=== PATIENT | female | born 1995 | race Caucasian/White ===

== ENCOUNTER → 2020-02-22 09:32 | Outpatient (BNVA) | payer MEDICAID, SELFPAY | PROVIDERS: Referring Provider Obstetrics & Gynecology; Visit Provider Obstetrics & Gynecology | DX: N91.2 Amenorrhea, unspecified (principal) | CPT/HCPCS: 81025 ==

== ENCOUNTER → 2020-03-23 13:46 | Outpatient (BNVA) | payer MEDICAID, SELFPAY | PROVIDERS: Visit Provider Obstetrics & Gynecology | DX: O09.899 Supervision of other high risk pregnancies, unspecified trimester (principal); Z87.42 Personal history of other diseases of the female genital tract | CPT/HCPCS: 80053; 80307; 82950; 84315; 84443; 85027; 86592; 86762; 86803; 86850; 86900; 87340; 87806 ==

== ENCOUNTER → 2020-04-04 09:59 | Outpatient (BNVA) | payer MEDICAID, SELFPAY | PROVIDERS: Visit Provider Obstetrics & Gynecology | DX: O99.280 Endocrine, nutritional and metabolic diseases complicating pregnancy, unspecified trimester (principal); E28.2 Polycystic ovarian syndrome; O99.331 Smoking (tobacco) complicating pregnancy, first trimester; O34.219 Maternal care for unspecified type scar from previous cesarean delivery; Z12.4 Encounter for screening for malignant neoplasm of cervix | CPT/HCPCS: 84315; 87491; 87591; 88175 ==

== ENCOUNTER 2020-05-18 13:47 | Emergency (ER) | payer MEDICAID, SELFPAY ==
[2020-05-18 13:49] VITALS: BP 136/78; PULSE 85; RESP 18; TEMP 36.3; O2SAT 94; BMI 38.0
--- NOTE | 2020-05-18 14:01 | ED_ITS ---
HPI - General: Chief complaint: OB/Uterine Contractions Stated complaint: abd pain/ 19 weeks preg Time Seen by Provider: 05/18/20 13:50 Source: patient Mode of arrival: ambulatory Limitations: no limitations History of Present Illness: HPI Narrative: 25-year-old female who is currently 19 weeks . She states she has had lower abdominal cramping states she has not felt any movement over the last few days. She did multiple miscarries in the past. She denies any fever or vomiting. Denies any bleeding or discharge. States pain is cramping in nature and rates it a 2 out of 10. Complaint: abdominal pain Associated symptoms: Reports abdominal pain; Deny dysuria or headache(s) Review of Systems Const: Denies: fever(s), chills, body aches or change in appetite Eyes: Denies: blurry vision or eye discomfort ENMT: Denies: throat pain or dental pain Card: Denies: chest pain Resp: Denies: dyspnea GI: Reports: abdominal pain : Denies: dysuria Musc: Denies: neck pain or back pain Skin/Breast: Denies: rash Neuro: Denies: headache(s) Psych: Denies: depression Dm/Lymph: Denies: easy bruising All/Imm: Denies: urticaria PFSH ED PFSH: Medical History No pertinent past medical history Denies diabetes, asthma, hypertension, seizures, DVT/PE. PMD: None PCOS (polycystic ovarian syndrome) Diagnosed in 2013. Has never been on any medication. Has 1 cycle every 3 to 4 months usually. Surgical History H/O section 06/02/2017--primary low transverse delivery for arrest of dilation at 4 cm. No extensions, single-layer closure. Surgery performed at 38 weeks.(Operative report scanned into expanse History of placement of ear tubes At the age of 6 or 7 at the time of tonsillectomy. History of tonsillectomy and adenoidectomy At the age of 6 8-uncomplicated Family History Mother Hyperlipidemia Hypertension Colon cancer Dx'd at age 55 Family/Other Thyroid condition maternal aunt, maternal cousins Denies family history of Ovarian cancer Diabetes Heart disease Breast cancer Uterine cancer Social History Additional social history: - Tobacco use: Started smoking at the age of 15 and smoked half a pack of cigarettes a day until 02/29/2020 when she quit smoking cigarettes when she found out she was . Alcohol use: Denies Drug use: Reports occasional marijuana use a couple of times a year. Denies any since 15. 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 Physical Exam Const: COMMON NORMALS: no acute distress, patient oriented x3 and healthy appearing HENMT: COMMON NORMALS: normocephalic and atraumatic HEAD & SCALP: normocephalic and atraumatic Eye: COMMON NORMALS: Equal, round and reactive pupils present and EOMs intact bilaterally PUPIL: Yes Equal, round and reactive pupils present Neck/C-Spine: COMMON NORMALS: full ROM and supple Chest: COMMONS NORMALS: normal inspection of the chest and normal palpation of entire chest wall Resp: COMMON NORMALS: normal respiratory effort, No retractions, No use of accessory muscles and clear to auscultation bilaterally AUSCULTATION: clear to auscultation bilaterally Cardio: COMMON NORMALS: regular rate, regular rhythm and No murmurs present (Cardio) RATE: regular rate RHYTHM: regular rhythm GI: COMMON NORMALS: Normal to inspection, nondistended, normoactive bowel sounds present, Soft to palpation, non-tender and no masses PALPATION: Yes Soft to palpation OTHER: gravid uterus Extremity: COMMON NORMALS: normal to inspection and full ROM Neuro: COMMON NORMALS: patient oriented x3, moves all extremities and no focal motor deficits Psych: COMMON NORMALS: mental status grossly normal, Normal thought process present and cooperative THOUGHT PROCESS: Normal thought process present Skin: COMMON NORMALS: no rashes or lesions noted and no wounds GENERAL SKIN EXAM: no rashes or lesions noted Course Vital Signs: Vital signs: Vital Signs Temperature 97.3 F L 05/18/20 13:49 Pulse Rate 85 05/18/20 13:49 Respiratory Rate 18 05/18/20 13:49 Blood Pressure 136/78 05/18/20 13:49 Pulse Oximetry 94 05/18/20 13:49 MDM - OB/Uterine Contractions MDM Narrative: Medical decision making narrative: Patient presents with abdominal pain and . Likely round ligament pain. Bedside ultrasound showed an IUP consistent with dates with movement and heart rate of 154. Will prescribe her Reglan and she is stable for discharge. She is to follow-up with her OB in 2 to 4 days return if worsening. Lab Data: Labs: Lab Results 05/18/20 Range/Units 14:10 Urine Color Yellow (Yellow) Urine Appearance Clear (CLEAR) Urine pH 6.5 (5-7) Ur Specific Gravit y 1.020 (1.005-1.030) Urine Protein Neg (Negative) Urine Glucose (UA) Norm (Normal) Urine Ketones Negative (Negative) Urine Blood Neg (Negative) Urine Nitrate Negative (Negative) Urine Bilirubin Neg (Negative) Urine Urobilinogen 1 H (Negative) mg/dL Ur Leukocyte Karuna ase Negative (Negative) Discharge Plan Discharge Patient Disposition: Home Clinical Impression: Abdominal pain in Qualifiers: Trimester: unspecified trimester Qualified Code(s): O26.899 - Other specified related conditions, unspecified trimester Condition: Stable Prescriptions: New Reglan 10 mg tablet 10 mg PO Q6H PRN (Reason: nausea and vomiting) Qty: 20 RF: 0 No Action [id number] 29 mg iron- 1 mg-150 mg capsule 1 cap PO DAILY RF: 0 Vitamin C 1,000 mg Tablet 1,000 mg PO DAILY RF: 0 Discharge Orders: Discharge Order (Routine); Ordered 05/18/20 Ordered By: April Fernandes Referrals: Amy Dean MD [Primary Care Provider] - 1-3 days Discharge Diet: Advance as tolerated Discharge Activity: Resume usual activity Patient Instructions: Abdominal Pain (ED) Coding Level of Care Code ED Typewriter Mechanic for Chg Fwd Exam Comprehensive
[2020-05-18] MEDS: diphenhydrAMINE 50 mg/mL SDV 1mL IVP (14:44)
[2020-05-18] MEDS: metoclopramide 5 mg/mL SDV 2 mL 10 MG IVP (14:44)
[2020-05-18 14:45] LABS: Add Urine Microscopic? NO
[2020-05-18] MEDS: sodium chloride 0.9% 1,000 ML 30 ML IV (14:45)
[2020-05-18 14:47] LABS: Bilirubin Urine Neg (Negative); Blood Urine Neg (Negative); Glucose Urine UA Norm (Normal); Ketones Urine Negative (Negative); Leukocyte Esterase Urine Negative (Negative); Nitrate Urine Negative (Negative); Protein Urine Neg (Negative); Urine Appearance Clear (CLEAR); Urine Color Yellow (Yellow); Urobilinogen Urine 1 mg/dL (Negative); pH Urine 6.5 (5-7)
[2020-05-18 15:13] VITALS: BP 122/70; PULSE 76; RESP 18; O2SAT 99
== END 2020-05-18 15:15 | disposition home or self-care (01) ==
PROVIDERS: Emergency Provider Emergency Medicine; PCP Obstetrics & Gynecology
DX: O26.892 Other specified pregnancy related conditions, second trimester (principal); R10.9 Unspecified abdominal pain; Z3A.19 19 weeks gestation of pregnancy; Z87.891 Personal history of nicotine dependence
CPT/HCPCS: 12345; 81003; 96361; 96374; 96375; 99283; J1200; J2765; J7030

== ENCOUNTER → 2020-07-27 10:35 | Outpatient (BNVA) | payer MEDICAID, SELFPAY | PROVIDERS: PCP Obstetrics & Gynecology; Visit Provider Obstetrics & Gynecology | DX: O09.899 Supervision of other high risk pregnancies, unspecified trimester (principal) | CPT/HCPCS: 82950; 84315; 85025 ==

== ENCOUNTER → 2020-09-13 10:44 | Outpatient (BNVA) | payer MEDICAID, SELFPAY | PROVIDERS: PCP Obstetrics & Gynecology; Visit Provider Obstetrics & Gynecology | DX: O40.9XX0 Polyhydramnios, unspecified trimester, not applicable or unspecified (principal); Z3A.00 Weeks of gestation of pregnancy not specified | CPT/HCPCS: 84315; 87081 ==

== ENCOUNTER → 2020-10-01 09:21 | Outpatient (BNVA) | payer MEDICAID, SELFPAY | PROVIDERS: PCP Obstetrics & Gynecology; Visit Provider Obstetrics & Gynecology | DX: Z20.822 Contact with and (suspected) exposure to COVID-19 (principal); Z01.812 Encounter for preprocedural laboratory examination | CPT/HCPCS: 87635 ==

== ENCOUNTER 2020-10-06 05:01 | Inpatient (IN) | payer MEDICAID, SELFPAY ==
[2020-10-06] VITALS (30 sets, daily range): BP systolic 105–136; BP diastolic 57–86; PULSE 56–89; RESP 12–18; TEMP 36.2–37.3; O2SAT 97–100; BMI 42.1
[2020-10-06 05:50] LABS: Basophils % 0.3 %; Eosinophils # 0.2 10^3/uL (0.0-0.8); Eosinophils % 1.4 %; Hematocrit 36.1 % (37.0-47.0); Hemoglobin 12.2 g/dL (11.5-15.3); Lymphocytes % 25.4 %; Mean Corpuscular HGB Conc 33.8 g/dL (30.0-36.0); Mean Corpuscular Hemoglobin 28.9 pg (28.0-34.0); Mean Corpuscular Volume 85.5 fL (81-99); Mean Platelet Volume 12.9 fL (7.4-10.4); Monocytes # 0.7 10^3/uL (0.2-0.9); Monocytes % 6.1 %; Neutrophils # 7.77 10^3/uL (1.8-7.7); Neutrophils % 66.3 %; Nucleated Red Blood Cells % 0 %; Platelet Count 217 10^3/cmm (130-400); Red Blood Count 4.22 10^6/uL (4.1-5.3); Red Cell Distribution Width 13.1 % (12.1-15.1); White Blood Count 11.7 10^3/uL (4.0-10.0)
[2020-10-06] MEDS: lactated ringers 1,000 ML 999 ML IV ×2 (05:50→06:44)
--- NOTE | 2020-10-06 06:43 | W.PM.OPSUD ---
Surgery/Procedure H&P Update DATE OF PROCEDURE: October 06, 2020 DATE H&P PERFORMED: 10/04/20 H&P UPDATE INFORMATION: I have reviewed H&P completed within last 30 days, I have examined patient prior to procedure, No changes to prior documentation and H&P is in [facility] EMR on date indicated PREOP DIAGNOSIS: previous CD X 1 desiring repeat CD PLANNED PROCEDURE: Operation Date: 10/06/20 07:00 Proposed Procedures p Section Repeat 56156(Not Applicable) - Amy Dean MD
[2020-10-06] MEDS: famotidine 20 mg/2 mL INJ IVP (06:44)
[2020-10-06] MEDS: citric acid-sodium citrate 30 mL UDC PO (06:44)
[2020-10-06] MEDS: metoclopramide 5 mg/mL SDV 2 mL 10 MG IVP (06:44)
--- NOTE | 2020-10-06 06:55 | P.ANESASSM_ITS ---
Pre-Anesthetic Assessment Pre-Anesthetic Assessment: Height/Weight: Height 1.7 m Weight 122.016 kg Temp Pulse Resp BP 99.1 F 75 17 131/86 10/06/20 06:17 10/06/20 06:55 10/06/20 05:20 10/06/20 06:55 Preop Diagnosis: previous CD X 1 desiring repeat CD Proposed Procedure: Operation Date: 10/06/20 07:00 Proposed Procedures p Section Repeat 75792(Not Applicable) - Amy Dean MD Was Beta Kimberlee taken within 24 hours: N/A Social: Social History: No alcohol and No tobacco Exam: Pre-Anes Outpt Exam: alert, oriented x 3, clear to auscultation bilaterally and regular rate & rhythm Airway: Submandibular: WNL Cervical ROM: WNL MP: 1 History/ROS: No significant history except as noted Pulmonary: Pulmonary: None reported CV/HEM: CV/HEM: None reported : : None reported Hepatic: Hepatic: None reported GI: GI: None reported Metabolic: Metabolic: None reported Musc/skel: Musc/skel: None reported Neuropsych: Neuropsych: None reported Anesthetic Plan: ASA status: 1 Anesthesia: Anesthesia Evaluation and Regional (specify below) (SAB) Risk of > 500 ml blood loss (7ml/kg in children): Yes, adequate IV access and fluids planned Meds/Allergies Current Medications: Current Medications Generic Name Dose Route Start Last Admin Trade Name Freq PRN Reason Stop Dose Admin Lactated Ringer's 1,000 mls @ 999 m ls/hr 10/06/20 05:20 10/06/20 06:44 Lactated Ringers IV 999 mls/hr .Q1H1M PRN Administration BLEEDING PFSH Anesthesia PFSH: Medical History No pertinent past medical history Denies diabetes, asthma, hypertension, seizures, DVT/PE. PMD: Lambert PCOS (polycystic ovarian syndrome) Diagnosed in 2013. Has never been on any medication. Has 1 cycle every 3 to 4 months usually. Surgical History H/O section 06/02/2017--primary low transverse delivery for arrest of dilation at 4 cm. No extensions, single-layer closure. Surgery performed at 38 weeks.(Operative report scanned into expanse History of placement of ear tubes At the age of 6 or 7 at the time of tonsillectomy. History of tonsillectomy and adenoidectomy At the age of [age]-uncomplicated Family History Mother Hyperlipidemia Hypertension Colon cancer Dx'd at age 55 Family/Other Thyroid condition maternal aunt, maternal cousins Denies family history of Ovarian cancer Diabetes Heart disease Breast cancer Uterine cancer Female Reproductive History: : 5 Data Anesthesia CBC & Chem 7: 10/06/20 05:28 Other Labs: Laboratory Results - last 48 hr 10/06/20 05:28 WBC 11.7 H RBC 4.22 Hgb 12.2 Hct 36.1 L MCV 85.5 MCH 28.9 MCHC 33.8 RDW 13.1 Plt Count 217 MPV 12.9 H Neut % (Auto) 66.3 Lymph % (Auto) 25.4 [place] % (Auto) 6.1 Eos % (Auto) 1.4 Baso % (Auto) 0.3 Neut # (Auto) 7.77 H Lymph # (Auto) 3.0 [place] # (Auto) 0.7 Eos # (Auto) 0.2 Baso # (Auto) 0.0 Nucleated RBC % (auto) 0 Nucleated RBCs # 0.0 Cardiac Studies: 2 No Data to Display
--- NOTE | 2020-10-06 08:32 | P.OP_ITS ---
Operative Report Date of procedure: October 06, 2020 OPERATIVE REPORT Date of surgery: 10/06/2020 Date of dictation: 10/06/2020 Preoperative diagnosis: 25-year-old 2 para 1 at 39 weeks and 1 day gestation, class III obesity, previous delivery x1 desiring repeat C- section, polyhydramnios Postoperative diagnosis/findings: Same, normal tubes and ovaries bilaterally, bladder radiations onto the uterus, baby boy Lg Oliver weighing 7 pounds 13 ounces, 3550 g, 20-1/2 inches long with Apgars 9/10, clear amniotic fluid, filmy omental adhesions onto the peritoneum anteriorly. Procedure done: Repeat low transverse delivery via Pfannenstiel incision Specimens removed/disposition of specimens: Placenta and cord which was discarded Surgeon: Dr. Amy Robbins Physician commercial real estate assistant: Dr. Pierce Anesthesia: Spinal anesthesia Estimated blood loss: 800 ml Intravenous fluids: 1400 mL of LR Urine output: 100 mL of clear urine at the end of procedure. Medications: As per anesthesia records Complications: None, both patient and baby were left to recover in a stable condition. PROCEDURE: After consent was obtained, patient was taken to the operating room where spinal anesthesia was placed without difficulty. She was placed supine on the table with a left lateral wedge. Mitchell catheter and SCDs were placed. The abdomen was shaved and then prepped with duo prep. She was draped in a sterile fashion. After checking adequacy of anesthesia, a Pfannenstiel incision was made 1 cm above the pubic symphysis over her old incision as patient requested. The incision was carried down to the fascia using the Bovie. The fascia was nicked in the midline and the fascial incision was extended laterally using curved Mayos. The inferior aspect of the fascia was grasped with jarrell clamps and dissected off from the underlying rectus muscle. This was repeated again superiorly without any difficulty. The rectus muscle was . A luis was made in the peritoneum and the peritoneal incision was carried inferiorly taking care to proceed in layers so as to avoid the bladder. The peritoneal incision was extended superiorly as well. No adhesions were noted from the uterus to the anterior abdominal wall. Some filmy omental obesity lesions were noted which were taken down . The uterus was noted to be rotated to the left. The bladder peritoneum was grasped with smooth forceps a bladder flap was created. the bladder blade was replaced thus protecting the bladder. A LOW TRANSVERSE UTERINE INCISION was made with a scalpel till the amniotic membrane was reached. The uterine incision was then extended laterally using bandage scissors. Amniotomy was done with Allis clamps and clear amniotic fluid was drained. The head of the baby was brought up to the level of the incision and delivered with fundal pressure. The remainder of body followed without any difficulty. The nose and mouth were suctioned, the umbilical cord was clamped and cut and the baby was handed off to the waiting consumer relations specialist, Dr. Dr. Hawkins. The placenta was delivered spontaneously with fundal massage. It was noted to be intact and was discarded. The interior of the uterus was cleaned of all clot and debris and was noted to be yasir well. The uterus was exteriorized. The uterine incision was closed with 0 Vicryl in a running interlocking manner. A small 1 cm extension was noted inferiorly on the left which was repaired with 0 Vicryl in a continuous interlocking fashion. Good hemostasis and reapproximation was obtained. A second imbricating layer was performed. The abdomen was irrigated and the gutters were cleaned of clot and debris. Normal tubes and ovaries were noted bilaterally. The uterus was placed back into the abdomen and uterine incision was noted to be hemostatic. The peritoneum was closed with a 2-0 plain in a continuous stitch. The rectus muscle was reapproximated with 2-0 plain suture in a mattress stitch. Good hemostasis was noted in the rectus muscle layer. The fascia was inspected for any defects and none were found and the fascia was closed with 0 Vicryl in continuous stitch. The subcutaneous plane was then irrigated and hemostasis was obtained using the Bovie. The subcutaneous plane was then reapproximated using 2-0 plain suture in a continuous manner. The skin was then closed with 4-0 Monocryl in a subcuticular fashion. Good reapproximation and hemostasis was noted. Steri-Strips were applied. The incision was dressed with Telfa ,ABD and paper tape. The fundus was noted to be firm at the end of the procedure and excess blood was expressed from the vagina. The patient was left to recover in a stable condition. Pre-op Diagnosis: previous CD X 1 desiring repeat CD
[2020-10-06] MEDS: ibuprofen 800 mg tablet PO ×2 (17:05→21:06)
[2020-10-06] MEDS: ferrous sulfate EC 325 mg Tablet PO (17:05)
--- NOTE | 2020-10-06 18:17 | ANE.PACU2 ---
Inpatient post-anesthesia follow up: Airway intact: Yes Vital signs: Temperature 98.2 F Pulse Rate 62 Respiratory Rate 18 Blood Pressure 128/85 Pulse Oximetry 100 Oxygen Delivery Me thod Room Air Oxygen Flow Rate Fraction of Inspir ed Oxygen Hydration adequate: Yes Nausea and vomiting: No Pain level: 1 Mental status: Baseline
[2020-10-06 20:09] LABS: Hematocrit 32.7 % (37.0-47.0); Mean Corpuscular HGB Conc 33.6 g/dL (30.0-36.0); Mean Corpuscular Hemoglobin 29.1 pg (28.0-34.0); Mean Corpuscular Volume 86.5 fL (81-99); Mean Platelet Volume 12.8 fL (7.4-10.4); Platelet Count 193 10^3/cmm (130-400); Red Blood Count 3.78 10^6/uL (4.1-5.3); White Blood Count 14.3 10^3/uL (4.0-10.0)
[2020-10-07] MEDS: ibuprofen 800 mg tablet PO (10:35)
[2020-10-07] MEDS: docusate sodium 100 mg Capsule PO (10:35)
[2020-10-07] MEDS: prenatal vitamin Capsule 1 CAP PO (10:35)
[2020-10-07] MEDS: ferrous sulfate EC 325 mg Tablet PO (10:35)
[2020-10-07 10:45] VITALS: BP 108/71; PULSE 83; RESP 16; TEMP 37.1; O2SAT 97
[2020-10-07 16:35] VITALS: BP 134/93; PULSE 76; RESP 14; TEMP 36.7; O2SAT 98
--- NOTE | 2020-10-07 23:13 | PM.DCS ---
Discharge Providers Date of Admission: 10/06/20 05:01 Date of Discharge: October 10, 2020 Attending Provider at Admission: Amy Dean MD Attending Provider at Discharge: Amy Dean MD Primary Care Provider: Amy Dean MD Preoperative diagnosis: 25-year-old 2 para 1 at 39 weeks and 1 day gestation class III obesity previous delivery x1 desiring repeat polyhydramnios Discharge Diagnosis: Status post repeat delivery on 10/06/2020 Obesity Procedure done: Repeat low transverse delivery via Pfannenstiel incision on 10/06/2020 HOSPITAL COURSE: Ms. Morelos is a 25-year-old [id number] at 39 weeks and 1 day who presented to labor and delivery on 10/06/2020 for scheduled repeat delivery. course was complicated by polyhydramnios which overall remained mild and stable. She had 1 previous and declined trial of labor. She underwent an uncomplicated repeat delivery on 10/06/2020. She did well on day 0 and was ambulating well, tolerating regular diet, voiding freely, passing flatus. She was breast-feeding without difficulty and bonding well with her son. Circumcision was performed on him on day of life 1 per her request. Pain was well-controlled with by mouth pain medication. She denied nausea, vomiting, fever, chills, shortness of breath, leg pain. She had moderate vaginal bleeding. On day # 1 she continued to do well with stable vital signs and stable hemoglobin at 11. She was discharged home on day 1 in a stable condition, as she desired early discharge and was worried about the upcoming poor weather. Warning signs for endometritis, wound infection, mastitis, DVT/PE were reviewed with her. Post delivery activity restrictions were also reviewed with her at all her questions were answered to her satisfaction. She plans on using the Nexplanon for contraception and will be scheduled for this as an outpatient. EXAM AT DISCHARGE: Gen.: No acute distress Heart: S1-S2 heard, regular rate and rhythm Lungs: Clear to auscultation bilaterally Abdomen: Soft, fundus firm below umbilicus, tenderness around incision. Incision: Clean dry and intact with Steri-Strips. Legs: No calf tenderness, trace bilateral pitting pedal edema. CONDITION AT DISCHARGE: Stable This documentation was created by [employer] oral and maxillofacial surgery software (known for inherent oral and maxillofacial surgery error). Every effort was made to assure accuracy of oral and maxillofacial surgery. Any obvious errors or omissions should be clarified with the author of the document. Reason for Visit Reason for Visit: High risk , hx of delivery Physical Exam Urinary Catheter Management^: Mitchell: Cath Placed During This Visit: yes, but has since been removed by the nurse Reason for Continuing Indwelling Catheter: Decision to DC Catheter Urinary Catheter Date of Insertion: 10/06/20 Urinary Catheter Time of Insertion: 07:18 Date Urinary Catheter Removed: 10/06/20 Time Urinary Catheter Discontinued: 18:30 Discharge Data Vitals: Last Vital Signs Temp 98.1 F 10/07/20 16:35 Pulse 76 10/07/20 16:35 Resp 14 10/07/20 16:35 BP 134/93 10/07/20 16:35 Pulse Ox 98 10/07/20 16:35 Discharge Plan Discharge Patient Disposition: Home Condition: Stable Prescriptions: New ibuprofen 800 mg tablet 800 mg PO Q8H Qty: 30 RF: 0 hydrocodone-acetaminophen 5-325 mg tablet 1 tab PO Q6H Qty: 25 RF: 0 docusate sodium 100 mg Capsule 100 mg PO BID PRN (Reason: constipation) Qty: 30 RF: 0 Continued famotidine 20 mg tablet 20 mg PO BID RF: 0 [id number] 29 mg iron- 1 mg-150 mg capsule 1 cap PO DAILY RF: 0 (DME) breast pump [Pump In Style Advanced] Device See Rx Instructions .ROUTE .MEDSUPPLY Qty: 1 RF: 0 ascorbic acid (vitamin C) [Vitamin C] 1,000 mg Tablet 1,000 mg PO DAILY RF: 0 Discharge Orders: Discharge Order (Routine); Ordered 10/07/20 Ordered By: Amy Dean Referrals: Amy Dean MD [Primary Care Provider] - 10/24/20 9:45 am (* Your 2 week incison check is with Dr. Robbins on 10/24/2020 at 9:45am. * Your 6 week follow up appointment is with Dr. Robbins on 11/15/2020 at 9:00am. ) Patient Instructions: Pre-eclampsia and Eclampsia (DC), Bleeding (DC), OB WHC, OB Discharge Report, OB Food/Drug Interaction Guide, OB Home Care, OB Proud Parent Packet Activity Restrictions/Additional Instructions: Pelvic rest for 6 weeks, no heavy lifting for 6 weeks Discharge Attestations Time Spent in Discharge Care*: greater than 30 min Quality Metrics Clinical Quality Measures During this hospital stay, did patient experience: None Coding Level of Care Code Acute Tensioning Machine Operator for Jose A Vega
== END 2020-10-07 16:50 | disposition home or self-care (01) | DRG 788 ==
PROVIDERS: Admitting Provider Obstetrics & Gynecology; PCP Obstetrics & Gynecology; Visit Provider Obstetrics & Gynecology
PROC: 10D00Z1 Extraction of Products of Conception, Low, Open Approach (ICD-10-PCS; CPT 59514; principal; 2020-10-06 07:00)
DX: O34.211 Maternal care for low transverse scar from previous cesarean delivery (principal); N85.8 Other specified noninflammatory disorders of uterus; Z3A.39 39 weeks gestation of pregnancy; Z37.0 Single live birth; O99.214 Obesity complicating childbirth; O40.3XX0 Polyhydramnios, third trimester, not applicable or unspecified
CPT/HCPCS: 12345; 36415; 51702; 59025; 59409; 85025; 85027; 98960; J0690; J1100; J2274; J2370; J2405; J2765; J3490

== ENCOUNTER → 2020-11-08 15:37 | Outpatient (BNVA) | payer MEDICAID, SELFPAY | PROVIDERS: PCP Obstetrics & Gynecology; Visit Provider Obstetrics & Gynecology | DX: Z30.9 Encounter for contraceptive management, unspecified (principal) | CPT/HCPCS: 81025 ==

== ENCOUNTER 2020-11-28 09:44 | Emergency (ER) | payer MEDICAID, SELFPAY ==
[2020-11-28 09:52] VITALS: BP 124/94; PULSE 105; RESP 15; TEMP 36.9; O2SAT 94; BMI 37.0
[2020-11-28 09:57] VITALS: BP 104/78; PULSE 98; RESP 18; O2SAT 95
--- NOTE | 2020-11-28 10:06 | XRR_ITS ---
PROCEDURE INFORMATION: Exam: XR Chest Exam date and time: 11/28/2020 10:33 AM Age: 25 years old Clinical indication: Cough and dyspnea; Additional info: Dyspnea/cough TECHNIQUE: Imaging protocol: XR of the chest Views: 1 view. COMPARISON: No relevant prior studies available. FINDINGS: Lungs: Unremarkable. No consolidation. Pleural spaces: Unremarkable. No pleural effusion. No pneumothorax. Heart/Mediastinum: Unremarkable. No cardiomegaly. Bones/joints: Unremarkable. XR/XR chest 1V portable [id number] IMPRESSION: No acute findings.
[2020-11-28 10:21] VITALS: O2SAT 95
[2020-11-28 10:48] VITALS: BP 104/78; PULSE 102; RESP 18; O2SAT 95
--- NOTE | 2020-11-28 10:53 | W.ED.COVID ---
HPI - COVID General: Chief Complaint: COVID symptoms Stated Complaint: cough, NOLASCO, fevers, CP Time Seen by Provider: 11/28/20 09:55 Triage information: Has fever, cough or shortness of breath. No known COVID + exposure last 14 days History of Present Illness: HPI Narrative: 25-year-old female cough congestion subjective fever myalgias last several days. No vomiting or diarrhea is not previously been tested for Covid is concerned she may have it recently had some relatives over however they did not have Covid that she was aware of either. Several other family members are simultaneously in the ER with respiratory complaints. Prior covid testing: no COVID 19 common symptoms: positive fever(s) (Subjective), non-productive cough and body aches; negative throat pain, nasal congestion, nausea or vomiting COVID 19 other sytmptoms: negative chest pain or requiring oxygen Onset (ago): day(s) Severity: mild Pertinent comorbid conditions: obesity Treatment prior to arrival: none COVID Results: Nasal/Oral Coronavirus 2019 PCR Not detected 10/01/20 09:21 10/01/20 Review of Systems Const: Reports: fever(s) (Subjective) and body aches ENMT: Denies: throat pain, ear or mastoid pain, nasal discharge or nasal congestion Card: Denies: chest pain, edema, dyspnea on exertion or orthopnea Resp: Reports: non-productive cough GI: Denies: nausea or vomiting : Denies: flank pain, difficulty voiding, dysuria, urinary frequency or urinary urgency Skin/Breast: Denies: rash or pruritus PFS ED PFSH: Medical History No pertinent past medical history Denies diabetes, asthma, hypertension, seizures, DVT/PE. PMD: [place] PCOS (polycystic ovarian syndrome) Diagnosed in 2013. Has never been on any medication. Has 1 cycle every 3 to 4 months usually. Surgical History H/O section 06/02/2017--primary low transverse delivery for arrest of dilation at 4 cm. No extensions, single-layer closure. Surgery performed at 38 weeks.(Operative report scanned into expanse History of placement of ear tubes At the age of 6 or 7 at the time of tonsillectomy. History of tonsillectomy and adenoidectomy At the age of [age]-uncomplicated Family History Mother Hyperlipidemia Hypertension Colon cancer Dx'd at age 55 Family/Other Thyroid condition maternal aunt, maternal cousins Denies family history of Ovarian cancer Diabetes Heart disease Breast cancer Uterine cancer Physical Exam Const: COMMON NORMALS: no acute distress GENERAL APPEARANCE: cooperative and comfortable ORIENTATION/CONSCIOUSNESS: Yes awake, Yes oriented to person, Yes oriented to place and Yes oriented to time HENMT: COMMON NORMALS: normocephalic, atraumatic and hearing grossly normal bilaterally HEAD & SCALP: normocephalic and atraumatic Neck/C-Spine: COMMON NORMALS: no JVD Resp: COMMON NORMALS: normal respiratory effort, No retractions, No use of accessory muscles and clear to auscultation bilaterally AUSCULTATION: clear to auscultation bilaterally Cardio: COMMON NORMALS: no JVD, regular rate, regular rhythm and No murmurs present (Cardio) RATE: regular rate RHYTHM: regular rhythm GI: COMMON NORMALS: Soft to palpation and No hepatosplenomegaly present AUSCULTATION: Yes normoactive bowel sounds PALPATION: Yes Soft to palpation, No Tenderness to palpation present (GI), No Guarding due to palpation present (GI) and Yes No hepatosplenomegaly present Extremity: COMMON NORMALS: normal to inspection, capillary refill normal, no clubbing, cyanosis or edema, no calf tenderness and no pedal edema Neuro: SENSORIUM/ORIENTATION: Yes oriented to person, Yes oriented to place and Yes oriented to time Skin: COMMON NORMALS: no rashes or lesions noted GENERAL SKIN EXAM: no rashes or lesions noted Course Vital Signs: Vital signs: Vital Signs Temperature 98.4 F 11/28/20 09:52 Pulse Rate 102 H 11/28/20 10:48 Respiratory Rate 18 11/28/20 10:48 Blood Pressure 104/78 11/28/20 10:48 Pulse Oximetry 95 11/28/20 10:48 MDM - COVID MDM Narrative: Medical decision making narrative: Vital signs stable clinical exam normal suspect viral respiratory infection she may very well have Covid. We did a send out PCR she is stable at this time and can be discharged home I do not believe she would benefit from any additional medications to recommend that she maintain self quarantine until the results are returned. Return if she has further problems. COVID Results: Nasal/Oral Coronavirus 2019 PCR Not detected 10/01/20 09:21 10/01/20 Discharge Plan Discharge Patient Disposition: Home Clinical Impression: Viral URI with cough Condition: Stable Prescriptions: New albuterol sulfate 90 mcg/actuation HFA aerosol inhaler 2 inh INHALATION Q4H PRN (Reason: shortness of breath or wheezing) Qty: 18 RF: 0 No Action Nexplanon 68 mg implant 1 implant subdermal .every 3 years Qty: 1 RF: 0 Discharge Orders: Discharge ED (Routine); Ordered 11/28/20 Ordered By: Serge Rodriguez Discharge Diet: Usual diet Discharge Activity: Resume usual activity Patient Instructions: Opioid Safety Activity Restrictions/Additional Instructions: You were tested for Covid today. Recommend that youIntent self quarantine until results are back. Use albuterol as needed if symptoms worsen recheck. Coding Level of Care Code ED Forensic Psychiatrist for Jose A Fws[facility] Exam Comprehensive
[2020-11-28 11:55] VITALS: BP 123/78; PULSE 103; RESP 20; TEMP 37.2; O2SAT 94
[2020-11-29 16:26] LABS: Coronavirus Test Green County Not Detected
--- NOTE | 2020-11-30 08:22 | PC.NURSE ---
notified pt of negative COVID results
== END 2020-11-28 12:53 | disposition home or self-care (01) ==
PROVIDERS: Emergency Provider Family Medicine
DX: J06.9 Acute upper respiratory infection, unspecified (principal)
CPT/HCPCS: 71045; 87635; 94799; 99283

== ENCOUNTER → 2021-04-06 09:23 | Outpatient (BNVA) | payer MEDICAID, SELFPAY | PROVIDERS: Visit Provider Obstetrics & Gynecology | DX: Z20.2 Contact with and (suspected) exposure to infections with a predominantly sexual mode of transmission (principal) | CPT/HCPCS: 86592; 86803; 87340; 87491; 87591 ==